=== PATIENT | female | born 1945 | race African-American/Black ===

== ENCOUNTER 2016-08-29 14:23 | Emergency (ER) | payer OTHER ==
[~2016-08-29] VITALS: Ht 162.6 cm; Wt 70.9 kg
[~2016-08-29 14:23] MED LIST: 8 HOUR PAIN RE650 M1 PO; ADULT LOW DOSE81 M1 PO; ADVAIR 100/501 DISK IH; ALBUTEROL SULF8.5 GM IH; ALPRAZOLAM0.25 MG PO; ANTI-DIARRHEA2 MG PO; ANUSOL1 SUPP PR; ASPIRIN E.C.81 M1 PO; Aspirin E.C. PO; BACTRIM,SEPT1 TABLET PO; BIOFREEZE TP; CEFTIN500 MG PO; CELEXA20 MG PO; CELEXA40 MG PO; CILOSTAZOL100 MG PO; CITALOPRAM HBR20 M1 PO; CLOPIDOGREL75 MG PO; COLACE100 MG PO; COMPAZINE5 MG PO; COUMADIN3 MG; COZAAR100 MG PO; COZAAR25 MG PO; COZAAR50 MG PO; CYMBALTA60 MG PO; Cozaar PO; DELTASONE10 MG PO; DEPAKOTE SPRIN125 MG; DEPAKOTE500 MG PO; DIVALPROEX SOD250 MG PO; DUONEB3 ML IH; DURAGESIC12 MCG TD; DURAGESIC25 MCG TD; DURAGESIC50 MCG TD; Duragesic TD; ENDOCET 5-3251 EACH PO; Ecotrin PO; FENTANYL1 EAC4 TD; GABAPENTIN600 MG PO; GEODON20 MG PO; GEODON40 MG PO; GLUCOPHAGE500 MG PO; GUIATUSS DM SY240 ML PO; Geodon PO; HUMALOG100 UNIT/1 SC; HYDROCODON-ACE1 EAC7 PO; HYDROXYZINE HCL25 M1; Habitrol,Nicoderm CQ TD; IMODIUM A-D2 M1 PO; K-DUR10 ME2 PO; K-Dur PO; KEFLEX500 MG PO; Klor-Con M20 PO; LANTUS 10100 UNITS/ SC; LANTUS 3 M100 UNITS/ SC; LANTUS 3 M100 UNITS1 SC; LASIX20 MG PO; LASIX40 MG PO; LEVEMIR FL100 UNITS/ SC; LEVEMIR100 UNIT/2 SC; LEVOTHROID75 MCG PO; LEVOTHYROXINE50 MCG PO; LIDOCAINE700 MG TD; LIDODERM 5% P1 PATCH PO; LIDODERM 5% P1 PATCH TD; LIPITOR20 MG PO; LISINOPRIL2.5 MG PO; LOPRESSOR25 MG PO; LOPRESSOR50 MG PO; LOSARTAN POTASS50 MG PO; Levaquin PO; Levothroid,Synthroid PO; Lopressor PO; METADATE CD50 MG; METFORMIN HCL500 M1 PO; MIRALAX17 GM PO; MIRTAZAPINE15 MG PO; MOBIC7.5 MG PO; MUCINEX DM ER1 EAC1 PO; Miralax, Glycolax PO; NEURONTIN100 MG PO; NEURONTIN300 MG PO; NEURONTIN400 MG PO; NEURONTIN600 MG PO; NICODERM CQ1 EAC2 TD; NITROSTAT0.4 MG SL; NORVASC5 MG PO; NOVOLOG 10100 UNITS/ SC; NOVOLOG PE100 UNITS/ SC; Neurontin PO; Norvasc PO; OXYCODONE HCL5 MG PO; PERCOCET 5/31 TABLET PO; PHILLIPS'400 MG/5 M PO; PLAVIX75 MG PO; PLETAL100 MG PO; PRAVASTATIN SOD80 MG PO; PRILOSEC20 MG PO; PRINIVIL10 MG PO; PROAIR HFA8.5 GM IH; PROCTOSOL-HC28.35 GM RC; PROMETHAZINE HC25 M1 PO; PROTONIX40 MG PO; Pravachol PO; Proventil,Ventolin H IH; RISPERDAL2 MG PO; RISPERIDONE0.5 MG PO; ROBITUSSIN DM118 ML PO; ROXICODONE5 MG PO; RYBIX ODT50 MG PO; SENNA8.6 MG PO; SENOKOT S,PE1 TABLET PO; SENOKOT,SENN1 TABLET PO; SPIRIVA1 INHALATI IH; STOOL SOFTENER100 MG PO; SYNTHROID50 MCG PO; TOPROL XL100 MG PO; TOPROL XL50 MG PO; TOPROL XL6.25 MG PO; TRADJENTA5 MG PO; TRAMADOL HCL50 MG PO; TYLENOL EXTRA500 MG PO; TYLENOL REGULA325 MG PO; Toprol XL PO; Tylenol Regular Stre PO; ULTRAM50 MG PO; Xanax PO; ZESTRIL,PRINIVI20 MG PO; ZESTRIL2.5 MG PO; ZOCOR20 MG PO; ZOCOR40 MG PO; Zocor PO; Zofran PO; celeXA PO
[2016-08-29 15:53] LABS: HEMATOCRIT 37.2 % (36.0-46.0); MCH 33.5 PG (29.0-34.0); MCHC 36.3 G/DL (30.0-36.0); MCV 92.3 FL (83-99); MEAN PLAT.VOLUME 9.2 uM^3 (9.5-12.4); PLATELET COUNT 214 K/uL (156-360); RBC DIS.WIDTH-CV 11.4 % (11.8-14.6); RBC DIS.WIDTH-SD 37.9 % (39-53); RED BLOOD COUNT 4.03 M/uL (3.80-5.20); WHITE BLOOD COUNT 6.2 K/uL (4.1-10.2)
[2016-08-29 16:20] LABS: ANION GAP 10 MEQ/L (2-14); CHLORIDE 103 MEQ/L (99-109); POTASSIUM 3.4 MEQ/L (3.7-5.4); SAMPLE HEMOLYSIS CHECK 0; SAMPLE ICTERIC CHECK 0; SAMPLE LIPEMIA CHECK 0; SODIUM 137 MEQ/L (136-147)
[2016-08-29 16:26] LABS: GFR ESTIMATE (CALCULATED) > 59 mL/min/; GLUCOSE 139 mg/dL (70-99); UREA NITROGEN (BUN) 5 mg/dL (9-23)
[2016-08-29 16:28] LABS: TROP-I INTERPRETATION NEGATIVE; TROPONIN-I < 0.01 ng/mL (0.0-0.30)
[2016-08-29 16:34] LABS: ADD MIUA? YES; BILIRUBIN NEGATIVE; BLOOD NEGATIVE; COLOR DK YELLOW ((YELLOW)); GLUCOSE (STRIP) NEGATIVE; KETONES NEGATIVE; LEUKOCYTES NEGATIVE; NITRITE NEGATIVE; PROTEIN (STRIP) 30; SPECIFIC GRAVITY 1.017 (1.000-1.030)
[2016-08-29 17:03] LABS: BACTERIA 2+; CASTS NONE SEEN /LPF; CRYSTALS NONE SEEN; EPITHELIAL CELLS RARE; MUCUS NONE SEEN; RED BLOOD CELLS 0-5 /HPF (0-5); UCUL ADDED? NO; WHITE BLOOD CELLS 0-5 /HPF (0-5)
[2016-08-29] MEDS ORDERED: ACETAMINOPHEN500 MG PO (18:41)
[2016-08-29] MEDS ORDERED: PROTONIX40 MG PO (18:42)
[2016-08-29] MEDS ORDERED: MAALOX ADVANCE1 EACH PO (18:42)
[2016-08-29 18:48] VITALS: BP 127/80
== END 2016-08-29 18:47 ==
LOC: EME 14:23
PROVIDERS: Emergency Medicine
DX: R06.00 Dyspnea, unspecified (principal); F20.9 Schizophrenia, unspecified; E11.9 Type 2 diabetes mellitus without complications; J43.9 Emphysema, unspecified; J44.9 Chronic obstructive pulmonary disease, unspecified; I10 Essential (primary) hypertension; E03.9 Hypothyroidism, unspecified; Z79.4 Long term (current) use of insulin; Z87.891 Personal history of nicotine dependence; Z88.6 Allergy status to analgesic agent
CPT/HCPCS: 71020; 80048; 81003; 84484; 85027; 90839; 93005; 99281; 99284

== ENCOUNTER 2016-12-02 11:28 | Emergency (ER) | payer OTHER ==
[~2016-12-02] VITALS: Ht 170.2 cm; Wt 73.8 kg
[~2016-12-02 11:28] MED LIST changes: +ACETAMINOPHEN500 MG PO; +MAALOX ADVANCE1 EACH PO
[2016-12-02 13:11] VITALS: BP 131/108
== END 2016-12-02 13:11 | disposition left against medical advice (07) ==
LOC: EME 11:28
DX: R07.89 Other chest pain (principal); F03.90 Unspecified dementia, unspecified severity, without behavioral disturbance, psychotic disturbance, mood disturbance, and anxiety; R45.1 Restlessness and agitation; F39 Unspecified mood [affective] disorder; E11.9 Type 2 diabetes mellitus without complications; I11.0 Hypertensive heart disease with heart failure; I50.9 Heart failure, unspecified; E78.5 Hyperlipidemia, unspecified; I25.2 Old myocardial infarction; K21.9 Gastro-esophageal reflux disease without esophagitis; Z86.73 Personal history of transient ischemic attack (TIA), and cerebral infarction without residual deficits; Z87.891 Personal history of nicotine dependence; Z95.5 Presence of coronary angioplasty implant and graft
CPT/HCPCS: 80048; 84484; 85025; 85610; 85730; 93005; 99281; 99284

== ENCOUNTER 2017-07-19 17:54 | Inpatient (IN) | payer OTHER ==
[~2017-07-19] VITALS: Ht 167.6 cm; Wt 67.2 kg
[2017-07-19 19:56] LABS: PLATELET COUNT 85 K/uL (156-360)
[2017-07-19 19:57] LABS: APPEARANCE CLEAR ((CLEAR)); BILIRUBIN NEGATIVE; BLOOD NEGATIVE; COLOR YELLOW ((YELLOW)); GLUCOSE (STRIP) >=500; KETONES NEGATIVE; LEUKOCYTES NEGATIVE; NITRITE NEGATIVE; PROTEIN (STRIP) NEGATIVE; SPECIFIC GRAVITY 1.015 (1.000-1.030); UCUL ADDED? NO
[2017-07-19 20:06] LABS: AMPHETAMINE NEGATIVE (500 ng/mL); BARBITURATES NEGATIVE (200 ng/mL); BENZODIAZEPINES NEGATIVE (150 ng/mL); BUPRENORPHINE NEGATIVE (10 ng/mL); COCAINE NEGATIVE (150 ng/mL); METHADONE NEGATIVE (200 ng/mL); METHAMPHETAMINE NEGATIVE (500 ng/mL); OPIATES (MORPHINE) NEGATIVE (100 ng/mL); OXYCODONE NEGATIVE (100 ng/mL); PHENCYCLIDINE NEGATIVE (25 ng/mL); PROPOXYPHENE NEGATIVE (300 ng/mL); THC CANNABINOIDS NEGATIVE (50 ng/mL); TRICYCLIC ANTIDEPRESSANTS PRESUMPTIVE POSITIVE (300 ng/mL)
[2017-07-19 20:27] LABS: CARBON DIOXIDE (BICARBONATE) 35.3 MEQ/L (20-31)
[2017-07-19 20:30] LABS: CHLORIDE 92 mEq/L (99-109); POTASSIUM 3.6 mEq/L (3.7-5.4); SODIUM 133 mEq/L (136-147)
[2017-07-19 20:34] LABS: TOTAL BILIRUBIN 1.8 mg/dL (0.0-1.0)
[2017-07-19 20:35] LABS: ALKALINE PHOSPHATASE 130 IU/L (3-129)
[2017-07-19 20:36] LABS: CREATININE 1.1 mg/dL (0.6-1.3); GFR ESTIMATE (CALCULATED) > 59 mL/min/
[2017-07-19 20:37] LABS: AST (GOT) 40 IU/L (2-34); UREA NITROGEN (BUN) 14 mg/dL (9-23)
[2017-07-19 20:39] LABS: ALT (GPT) 35 IU/L (3-49)
[2017-07-19 20:47] LABS: GLUCOSE 605 mg/dL (70-99)
[2017-07-19 20:54] LABS: HEMATOCRIT 36.6 % (36.0-46.0); HEMOGLOBIN 14.2 G/DL (11.9-15.5); MCH 34.6 PG (29.0-34.0); MCHC 38.8 G/DL (30.0-36.0); MCV 89.3 FL (83-99); RBC DIS.WIDTH-CV 10.7 % (11.8-14.6); RBC DIS.WIDTH-SD 34.7 % (39-53); WHITE BLOOD COUNT 5.5 K/uL (4.1-10.2)
[2017-07-20 00:47] VITALS: BP 123/61
[2017-07-20 06:02] LABS: HEMATOCRIT 34.1 % (36.0-46.0); HEMOGLOBIN 12.7 G/DL (11.9-15.5); MCH 33.8 PG (29.0-34.0); MCHC 37.2 G/DL (30.0-36.0); MCV 90.7 FL (83-99); PLATELET COUNT 89 K/uL (156-360); RBC DIS.WIDTH-CV 10.7 % (11.8-14.6); RBC DIS.WIDTH-SD 35.4 % (39-53); RED BLOOD COUNT 3.76 M/uL (3.80-5.20)
[2017-07-20 06:26] LABS: ALBUMIN 3.3 G/DL (3.2-4.8); ALKALINE PHOSPHATASE 105 IU/L (3-129); ALT (GPT) 33 IU/L (3-49); AST (GOT) 44 IU/L (2-34); CHLORIDE 102 MEQ/L (99-109); CREATININE 0.7 MG/DL (0.6-1.3); GFR ESTIMATE (CALCULATED) > 59 mL/min/; GLUCOSE 316 mg/dL (70-99); POTASSIUM 2.9 MEQ/L (3.7-5.4); SODIUM 135 MEQ/L (136-147); UREA NITROGEN (BUN) 10 mg/dL (9-23)
[2017-07-20 08:18] VITALS: BP 168/97
[2017-07-20 09:36] LABS: THYROTROPIN (TSH) 5.6 MIU/L (0.4-5.5)
[2017-07-20 10:21] LABS: FOLIC ACID (FOLATE) 12.1 NG/ML (5.0-22.0)
[2017-07-20 15:23] VITALS: BP 183/83
[2017-07-20 16:30] LABS: POTASSIUM 4.2 MEQ/L (3.7-5.4)
[2017-07-20 20:23] LABS: GLUCOSE 505 mg/dL (70-99)
[2017-07-20 23:13] VITALS: BP 148/77
[2017-07-21 07:05] VITALS: BP 122/78
[2017-07-21 09:06] LABS: HEMATOCRIT 34.9 % (36.0-46.0); HEMOGLOBIN 12.8 G/DL (11.9-15.5); MCH 33.2 PG (29.0-34.0); MCHC 36.7 G/DL (30.0-36.0); MCV 90.6 FL (83-99); PLATELET COUNT 101 K/uL (156-360); RBC DIS.WIDTH-SD 36.5 % (39-53); RED BLOOD COUNT 3.85 M/uL (3.80-5.20); WHITE BLOOD COUNT 5.8 K/uL (4.1-10.2)
[2017-07-21 09:35] LABS: CHLORIDE 106 MEQ/L (99-109); CREATININE 0.8 MG/DL (0.6-1.3); GFR ESTIMATE (CALCULATED) > 59 mL/min/; GLUCOSE 142 mg/dL (70-99); POTASSIUM 2.6 MEQ/L (3.7-5.4); SODIUM 143 MEQ/L (136-147); UREA NITROGEN (BUN) 8 mg/dL (9-23)
[2017-07-21 10:47] LABS: HEPATITIS B SURFACE ANTIGEN Nonreactive
[2017-07-21 10:48] LABS: ANTI-HEPATITIS A VIRUS (IGM) Nonreactive
[2017-07-21 10:49] LABS: ANTI-HEPATITIS B CORE (IGM) Nonreactive
[2017-07-21 10:55] LABS: TREPONEMA ANTIBODY NEGATIVE (NEGATIVE)
[2017-07-21 11:02] LABS: HEPATITIS C ANTIBODY REACTIVE
[2017-07-21 15:32] LABS: C DIFF TOXIN NEGATIVE (NEGATIVE)
[2017-07-21 15:54] VITALS: BP 124/71
[2017-07-21 23:34] LABS: APPEARANCE CLEAR ((CLEAR)); BILIRUBIN NEGATIVE; BLOOD SMALL; COLOR YELLOW ((YELLOW)); GLUCOSE (STRIP) >=500; KETONES NEGATIVE; LEUKOCYTES NEGATIVE; NITRITE NEGATIVE; PROTEIN (STRIP) NEGATIVE; SPECIFIC GRAVITY 1.012 (1.000-1.030)
[2017-07-22 00:14] VITALS: BP 134/80
[2017-07-22 00:33] LABS: BACTERIA 3+ /HPF; EPITHELIAL CELLS NONE SEEN /HPF; MUCUS NONE SEEN /LPF
[2017-07-22 07:30] VITALS: BP 134/78
[2017-07-22 11:09] LABS: HEMATOCRIT 35.9 % (36.0-46.0); HEMOGLOBIN 13.2 G/DL (11.9-15.5); MCH 34.3 PG (29.0-34.0); MCHC 36.8 G/DL (30.0-36.0); MCV 93.2 FL (83-99); PLATELET COUNT 86 K/uL (156-360); RBC DIS.WIDTH-SD 37.6 % (39-53); RED BLOOD COUNT 3.85 M/uL (3.80-5.20); WHITE BLOOD COUNT 4.8 K/uL (4.1-10.2)
[2017-07-22 11:36] LABS: ALBUMIN 3.1 G/DL (3.2-4.8); ALKALINE PHOSPHATASE 80 IU/L (3-129); ALT (GPT) 37 IU/L (3-49); AST (GOT) 54 IU/L (2-34); CHLORIDE 103 MEQ/L (99-109); CREATININE 0.8 MG/DL (0.6-1.3); GFR ESTIMATE (CALCULATED) > 59 mL/min/; SODIUM 136 MEQ/L (136-147); TOTAL BILIRUBIN 1.8 MG/DL (0.0-1.0); TOTAL PROTEIN 6.8 G/DL (6.4-8.3); UREA NITROGEN (BUN) 10 mg/dL (9-23)
[2017-07-22 11:37] LABS: GLUCOSE 353 mg/dL (70-99)
[2017-07-22 15:39] VITALS: BP 134/79
[2017-07-23 07:00] VITALS: BP 158/76
[2017-07-23 11:09] LABS: HEMATOCRIT 35.9 % (36.0-46.0); HEMOGLOBIN 13.4 G/DL (11.9-15.5); MCH 34.6 PG (29.0-34.0); MCHC 37.3 G/DL (30.0-36.0); MCV 92.8 FL (83-99); PLATELET COUNT 91 K/uL (156-360); RBC DIS.WIDTH-SD 37.4 % (39-53); RED BLOOD COUNT 3.87 M/uL (3.80-5.20); WHITE BLOOD COUNT 5.8 K/uL (4.1-10.2)
[2017-07-23 12:09] LABS: ALBUMIN 3.1 G/DL (3.2-4.8); CHLORIDE 112 MEQ/L (99-109); CREATININE 0.8 MG/DL (0.6-1.3); GFR ESTIMATE (CALCULATED) > 59 mL/min/; GLUCOSE 177 mg/dL (70-99); PHOSPHORUS 3.6 mg/dL (2.5-4.9); POTASSIUM 3.8 MEQ/L (3.7-5.4); SODIUM 143 MEQ/L (136-147); UREA NITROGEN (BUN) 9 mg/dL (9-23)
[2017-07-23] MEDS ORDERED: TRADJENTA5 MG PO (12:51)
[2017-07-23] MEDS ORDERED: TRAMADOL HCL50 MG PO (12:52)
[2017-07-23] MEDS ORDERED: RISPERIDONE0.5 MG PO (12:52)
[2017-07-23] MEDS ORDERED: PLAVIX75 MG PO (12:53)
[2017-07-23] MEDS ORDERED: GABAPENTIN100 MG PO (12:53)
[2017-07-23] MEDS ORDERED: METFORMIN HCL500 MG PO (12:53)
[2017-07-23] MEDS ORDERED: CYMBALTA60 MG PO (12:54)
[2017-07-23] MEDS ORDERED: LOPRESSOR25 MG PO (12:54)
[2017-07-23] MEDS ORDERED: LISINOPRIL2.5 MG PO (12:54)
[2017-07-23] MEDS ORDERED: ROBITUSSIN100 MG/5 M PO (12:55)
[2017-07-23] MEDS ORDERED: VICKS NYQUIL C236 ML PO (12:55)
[2017-07-23 22:34] VITALS: BP 119/60
[2017-07-24 07:23] VITALS: BP 140/85
[2017-07-24 09:47] LABS: BASOPHIL (%) 0.8 % (0-1); BASOPHIL COUNT 0.1 K/uL (0-0.1); EOSINOPHIL (%) 3.6 % (0-5); EOSINOPHIL COUNT 0.2 K/uL (0-0.3); HEMOGLOBIN 13.8 G/DL (11.9-15.5); IMMATURE GRANULOCYTE (%) 0.3 % (0.0-0.7); LYMPHOCYTE (%) 37.3 % (15-42); LYMPHOCYTE COUNT 2.4 K/uL (1.0-2.8); MCH 34.1 PG (29.0-34.0); MCHC 36.3 G/DL (30.0-36.0); MCV 93.8 FL (83-99); MONOCYTE (%) 8.7 % (3-12); MONOCYTE COUNT 0.6 K/uL (0-0.8); NEUTROPHIL (%) 49.3 % (45-76); NEUTROPHIL COUNT 3.1 K/uL (1.8-6.4); PLATELET COUNT 99 K/uL (156-360); RBC DIS.WIDTH-SD 37.4 % (39-53); RED BLOOD COUNT 4.05 M/uL (3.80-5.20); WHITE BLOOD COUNT 6.3 K/uL (4.1-10.2)
[2017-07-24 10:12] LABS: ALBUMIN 3.2 G/DL (3.2-4.8); CHLORIDE 111 MEQ/L (99-109); GFR ESTIMATE (CALCULATED) > 59 mL/min/; GLUCOSE 178 mg/dL (70-99); PHOSPHORUS 4.2 mg/dL (2.5-4.9); POTASSIUM 4.5 MEQ/L (3.7-5.4); SODIUM 141 MEQ/L (136-147); UREA NITROGEN (BUN) 14 mg/dL (9-23)
[2017-07-24 16:33] VITALS: BP 148/76
[2017-07-24 22:54] VITALS: BP 132/72
[2017-07-25 06:55] VITALS: BP 137/81
[2017-07-25 15:10] VITALS: BP 135/77
[2017-07-26 00:01] VITALS: BP 114/77
[2017-07-26 08:55] VITALS: BP 110/62
[2017-07-26 15:00] VITALS: BP 111/82
[2017-07-27 01:09] VITALS: BP 136/84
[2017-07-27 07:11] VITALS: BP 99/53
[2017-07-27 15:59] VITALS: BP 136/91
[2017-07-27 21:26] VITALS: BP 97/55
[2017-07-27 23:59] VITALS: BP 105/68
[2017-07-28] MEDS ORDERED: NOVOLOG PE100 UNITS/ SC (08:03)
[2017-07-28] MEDS ORDERED: LEVEMIR100 UNIT/2 SC (08:03)
[2017-07-28 11:07] LABS: HEMATOCRIT 40.2 % (36.0-46.0); HEMOGLOBIN 13.8 G/DL (11.9-15.5); MCH 33.3 PG (29.0-34.0); MCHC 34.3 G/DL (30.0-36.0); MCV 97.1 FL (83-99); RBC DIS.WIDTH-CV 11.1 % (11.8-14.6); RBC DIS.WIDTH-SD 39.4 % (39-53); RED BLOOD COUNT 4.14 M/uL (3.80-5.20); WHITE BLOOD COUNT 6.7 K/uL (4.1-10.2)
[2017-07-28 11:17] LABS: PLATELET COUNT 138 K/uL (156-360)
[2017-07-28 11:35] LABS: TROP-I INTERPRETATION NEGATIVE; TROPONIN-I < 0.01 ng/mL (0.0-0.30)
[2017-07-28 13:42] LABS: ALBUMIN 3.8 G/DL (3.2-4.8); ALT (GPT) 42 IU/L (3-49); AST (GOT) 44 IU/L (2-34); CHLORIDE 105 MEQ/L (99-109); TOTAL BILIRUBIN 1.5 MG/DL (0.0-1.0)
[2017-07-28 13:46] LABS: CREATININE 1.5 MG/DL (0.6-1.3); GLUCOSE 444 mg/dL (70-99); UREA NITROGEN (BUN) 24 mg/dL (9-23)
[2017-07-28 13:47] LABS: ALKALINE PHOSPHATASE 110 IU/L (3-129); GFR ESTIMATE (CALCULATED) 44 mL/min/; POTASSIUM 7.2 MEQ/L (3.7-5.4); SODIUM 128 MEQ/L (136-147); TOTAL PROTEIN 8.2 G/DL (6.4-8.3)
[2017-07-28 18:51] LABS: CHLORIDE 103 MEQ/L (99-109); CREATININE 1.5 MG/DL (0.6-1.3); GFR ESTIMATE (CALCULATED) 44 mL/min/; SODIUM 131 MEQ/L (136-147); UREA NITROGEN (BUN) 22 mg/dL (9-23)
[2017-07-28 18:53] LABS: GLUCOSE 403 mg/dL (70-99); POTASSIUM 7.3 MEQ/L (3.7-5.4)
[2017-07-28 19:20] LABS: CREATINE KINASE 109 IU/L (1-294)
[2017-07-28 20:45] VITALS: BP 89/69
[2017-07-28 21:15] VITALS: BP 89/69; BP 96/68
[2017-07-28 21:30] VITALS: BP 112/100
[2017-07-28 22:00] VITALS: BP 95/78
[2017-07-28 22:30] VITALS: BP 130/109
[2017-07-28 23:00] VITALS: BP 87/65
[2017-07-29] VITALS (18 sets, daily range): BP systolic 89–141; BP diastolic 59–104
[2017-07-29 01:03] LABS: CHLORIDE 112 mEq/L (99-109)
[2017-07-29 01:05] LABS: GLUCOSE 110 mg/dL (70-99)
[2017-07-29 01:06] LABS: POTASSIUM 4.1 mEq/L (3.7-5.4); SODIUM 139 mEq/L (136-147)
[2017-07-29 01:08] LABS: CREATININE 1.5 mg/dL (0.6-1.3); GFR ESTIMATE (CALCULATED) 44 mL/min/
[2017-07-29 01:09] LABS: UREA NITROGEN (BUN) 20 mg/dL (9-23)
[2017-07-29 06:36] LABS: CHLORIDE 110 MEQ/L (99-109); CREATININE 1.2 MG/DL (0.6-1.3); GFR ESTIMATE (CALCULATED) 57 mL/min/; POTASSIUM 4.6 MEQ/L (3.7-5.4); SODIUM 137 MEQ/L (136-147); UREA NITROGEN (BUN) 16 mg/dL (9-23)
[2017-07-29 06:38] LABS: GLUCOSE 220 mg/dL (70-99)
[2017-07-29 10:26] LABS: BASOPHIL (%) 0.8 % (0-1); BASOPHIL COUNT 0.1 K/uL (0-0.1); EOSINOPHIL (%) 3.3 % (0-5); EOSINOPHIL COUNT 0.2 K/uL (0-0.3); HEMATOCRIT 33.9 % (36.0-46.0); HEMOGLOBIN 12.4 G/DL (11.9-15.5); IMMATURE GRANULOCYTE (%) 0.3 % (0.0-0.7); LYMPHOCYTE (%) 39.3 % (15-42); LYMPHOCYTE COUNT 2.5 K/uL (1.0-2.8); MCH 34.9 PG (29.0-34.0); MCHC 36.6 G/DL (30.0-36.0); MCV 95.5 FL (83-99); MONOCYTE (%) 10.8 % (3-12); MONOCYTE COUNT 0.7 K/uL (0-0.8); NEUTROPHIL (%) 45.5 % (45-76); NEUTROPHIL COUNT 2.9 K/uL (1.8-6.4); PLATELET COUNT 111 K/uL (156-360); RBC DIS.WIDTH-CV 11.3 % (11.8-14.6); RBC DIS.WIDTH-SD 39.2 % (39-53); RED BLOOD COUNT 3.55 M/uL (3.80-5.20); WHITE BLOOD COUNT 6.5 K/uL (4.1-10.2)
[2017-07-29 17:18] LABS: ALBUMIN 3.1 G/DL (3.2-4.8); ALT (GPT) 38 IU/L (3-49); AST (GOT) 44 IU/L (2-34); CHLORIDE 112 MEQ/L (99-109); CREATININE 0.9 MG/DL (0.6-1.3); GFR ESTIMATE (CALCULATED) > 59 mL/min/; POTASSIUM 3.8 MEQ/L (3.7-5.4); SODIUM 139 MEQ/L (136-147); TOTAL BILIRUBIN 1.3 MG/DL (0.0-1.0); UREA NITROGEN (BUN) 14 mg/dL (9-23)
[2017-07-29 17:25] LABS: ALKALINE PHOSPHATASE 65 IU/L (3-129); GLUCOSE 113 mg/dL (70-99)
[2017-07-30 08:03] VITALS: BP 118/84
[2017-07-30 11:28] VITALS: BP 141/81
[2017-07-30 13:29] LABS: BASOPHIL (%) 0.8 % (0-1); EOSINOPHIL (%) 2.4 % (0-5); EOSINOPHIL COUNT 0.1 K/uL (0-0.3); HEMATOCRIT 36.4 % (36.0-46.0); HEMOGLOBIN 12.9 G/DL (11.9-15.5); IMMATURE GRANULOCYTE (%) 0.2 % (0.0-0.7); LYMPHOCYTE (%) 43.9 % (15-42); LYMPHOCYTE COUNT 2.2 K/uL (1.0-2.8); MCH 33.9 PG (29.0-34.0); MCHC 35.4 G/DL (30.0-36.0); MCV 95.5 FL (83-99); MONOCYTE (%) 8.9 % (3-12); MONOCYTE COUNT 0.5 K/uL (0-0.8); NEUTROPHIL (%) 43.8 % (45-76); NEUTROPHIL COUNT 2.2 K/uL (1.8-6.4); PLATELET COUNT 108 K/uL (156-360); RBC DIS.WIDTH-CV 11.3 % (11.8-14.6); RBC DIS.WIDTH-SD 39.1 % (39-53); RED BLOOD COUNT 3.81 M/uL (3.80-5.20)
[2017-07-30 13:40] LABS: ALBUMIN 3.1 g/dL (3.2-4.8); CHLORIDE 114 mEq/L (99-109); POTASSIUM 3.6 mEq/L (3.7-5.4); SODIUM 138 mEq/L (136-147)
[2017-07-30 13:41] LABS: MAGNESIUM 1.6 mg/dL (1.3-2.7)
[2017-07-30 13:43] LABS: GLUCOSE 157 mg/dL (70-99); TOTAL PROTEIN 7.3 g/dL (6.4-8.3)
[2017-07-30 13:45] LABS: TOTAL BILIRUBIN 1.2 mg/dL (0.0-1.0)
[2017-07-30 13:46] LABS: ALKALINE PHOSPHATASE 68 IU/L (3-129); PHOSPHORUS 3.3 mg/dL (2.5-4.9)
[2017-07-30 13:47] LABS: CREATININE 0.9 mg/dL (0.6-1.3); GFR ESTIMATE (CALCULATED) > 59 mL/min/
[2017-07-30 13:48] LABS: AST (GOT) 57 IU/L (2-34); UREA NITROGEN (BUN) 12 mg/dL (9-23)
[2017-07-30 13:49] LABS: ALT (GPT) 45 IU/L (3-49)
[2017-07-30 19:45] VITALS: BP 114/64
[2017-07-31 00:01] VITALS: BP 124/82
[2017-07-31 03:30] VITALS: BP 116/72
[2017-07-31 10:31] VITALS: BP 128/98
[2017-07-31 11:29] LABS: ALBUMIN 3.4 G/DL (3.2-4.8); ALKALINE PHOSPHATASE 65 IU/L (3-129); ALT (GPT) 39 IU/L (3-49); AST (GOT) 53 IU/L (2-34); CHLORIDE 113 MEQ/L (99-109); CREATININE 0.8 MG/DL (0.6-1.3); GFR ESTIMATE (CALCULATED) > 59 mL/min/; GLUCOSE 103 mg/dL (70-99); POTASSIUM 3.5 MEQ/L (3.7-5.4); SODIUM 141 MEQ/L (136-147); TOTAL BILIRUBIN 1.5 MG/DL (0.0-1.0); TOTAL PROTEIN 7.7 G/DL (6.4-8.3); UREA NITROGEN (BUN) 9 mg/dL (9-23)
[2017-07-31 16:32] VITALS: BP 141/83
[2017-07-31 16:51] LABS: BASOPHIL (%) 0.7 % (0-1); EOSINOPHIL (%) 2.5 % (0-5); EOSINOPHIL COUNT 0.1 K/uL (0-0.3); HEMATOCRIT 33.4 % (36.0-46.0); HEMOGLOBIN 11.9 G/DL (11.9-15.5); IMMATURE GRANULOCYTE (%) 0.2 % (0.0-0.7); LYMPHOCYTE (%) 32.3 % (15-42); LYMPHOCYTE COUNT 1.3 K/uL (1.0-2.8); MCH 33.6 PG (29.0-34.0); MCHC 35.6 G/DL (30.0-36.0); MCV 94.4 FL (83-99); MONOCYTE (%) 8.2 % (3-12); MONOCYTE COUNT 0.3 K/uL (0-0.8); NEUTROPHIL (%) 56.1 % (45-76); NEUTROPHIL COUNT 2.3 K/uL (1.8-6.4); PLATELET COUNT 108 K/uL (156-360); RBC DIS.WIDTH-CV 11.1 % (11.8-14.6); RBC DIS.WIDTH-SD 38.4 % (39-53); RED BLOOD COUNT 3.54 M/uL (3.80-5.20)
[2017-07-31 19:31] VITALS: BP 127/81
[2017-08-01 00:08] VITALS: BP 103/68
[2017-08-01 05:49] LABS: BASOPHIL (%) 0.5 % (0-1); EOSINOPHIL (%) 3.2 % (0-5); EOSINOPHIL COUNT 0.1 K/uL (0-0.3); HEMATOCRIT 27.6 % (36.0-46.0); HEMOGLOBIN 10.1 G/DL (11.9-15.5); IMMATURE GRANULOCYTE (%) 0.5 % (0.0-0.7); LYMPHOCYTE (%) 46.6 % (15-42); LYMPHOCYTE COUNT 1.8 K/uL (1.0-2.8); MCH 33.9 PG (29.0-34.0); MCHC 36.6 G/DL (30.0-36.0); MCV 92.6 FL (83-99); MONOCYTE (%) 8.7 % (3-12); MONOCYTE COUNT 0.3 K/uL (0-0.8); NEUTROPHIL (%) 40.5 % (45-76); NEUTROPHIL COUNT 1.5 K/uL (1.8-6.4); PLATELET COUNT 93 K/uL (156-360); RBC DIS.WIDTH-CV 11.1 % (11.8-14.6); RBC DIS.WIDTH-SD 37.9 % (39-53); RED BLOOD COUNT 2.98 M/uL (3.80-5.20); WHITE BLOOD COUNT 3.8 K/uL (4.1-10.2)
[2017-08-01 07:04] LABS: ALBUMIN 2.7 G/DL (3.2-4.8); ALT (GPT) 34 IU/L (3-49); AST (GOT) 43 IU/L (2-34); CHLORIDE 111 MEQ/L (99-109); CREATININE 0.8 MG/DL (0.6-1.3); GFR ESTIMATE (CALCULATED) > 59 mL/min/; POTASSIUM 3.5 MEQ/L (3.7-5.4); SODIUM 139 MEQ/L (136-147); UREA NITROGEN (BUN) 12 mg/dL (9-23)
[2017-08-01 07:06] LABS: ALKALINE PHOSPHATASE 113 IU/L (3-129); GLUCOSE 252 mg/dL (70-99); TOTAL BILIRUBIN 0.9 MG/DL (0.0-1.0); TOTAL PROTEIN 5.9 G/DL (6.4-8.3)
[2017-08-01 16:37] VITALS: BP 141/87
[2017-08-01 20:00] VITALS: BP 160/89
[2017-08-02 03:24] VITALS: BP 142/88
[2017-08-02 07:00] VITALS: BP 135/74
[2017-08-02 09:14] LABS: HEMATOCRIT 30.3 % (36.0-46.0); HEMOGLOBIN 10.8 G/DL (11.9-15.5); MCH 33.8 PG (29.0-34.0); MCHC 35.6 G/DL (30.0-36.0); MCV 94.7 FL (83-99); PLATELET COUNT 103 K/uL (156-360); RBC DIS.WIDTH-CV 11.3 % (11.8-14.6); RBC DIS.WIDTH-SD 38.7 % (39-53); WHITE BLOOD COUNT 3.6 K/uL (4.1-10.2)
[2017-08-02 10:01] LABS: ALBUMIN 2.8 G/DL (3.2-4.8); ALKALINE PHOSPHATASE 90 IU/L (3-129); ALT (GPT) 31 IU/L (3-49); AST (GOT) 33 IU/L (2-34); CHLORIDE 113 MEQ/L (99-109); CREATININE 0.8 MG/DL (0.6-1.3); GFR ESTIMATE (CALCULATED) > 59 mL/min/; POTASSIUM 3.6 MEQ/L (3.7-5.4); SODIUM 143 MEQ/L (136-147); TOTAL PROTEIN 6.4 G/DL (6.4-8.3); UREA NITROGEN (BUN) 12 mg/dL (9-23)
[2017-08-02 10:04] LABS: GLUCOSE 124 mg/dL (70-99)
[2017-08-02 11:05] VITALS: BP 146/79
[2017-08-02 15:00] VITALS: BP 121/93
[2017-08-02 23:50] VITALS: BP 169/72
[2017-08-03 05:23] VITALS: BP 120/70
[2017-08-03 05:39] LABS: BASOPHIL (%) 0.6 % (0-1); EOSINOPHIL COUNT 0.2 K/uL (0-0.3); HEMATOCRIT 32.3 % (36.0-46.0); HEMOGLOBIN 11.8 G/DL (11.9-15.5); IMMATURE GRANULOCYTE (%) 0.2 % (0.0-0.7); LYMPHOCYTE (%) 53.4 % (15-42); LYMPHOCYTE COUNT 2.5 K/uL (1.0-2.8); MCH 34.7 PG (29.0-34.0); MCHC 36.5 G/DL (30.0-36.0); MONOCYTE (%) 9.1 % (3-12); MONOCYTE COUNT 0.4 K/uL (0-0.8); NEUTROPHIL (%) 32.7 % (45-76); NEUTROPHIL COUNT 1.5 K/uL (1.8-6.4); PLATELET COUNT 100 K/uL (156-360); RBC DIS.WIDTH-CV 11.3 % (11.8-14.6); RBC DIS.WIDTH-SD 38.5 % (39-53); WHITE BLOOD COUNT 4.7 K/uL (4.1-10.2)
[2017-08-03 06:21] LABS: ALBUMIN 2.8 G/DL (3.2-4.8); ALKALINE PHOSPHATASE 110 IU/L (3-129); ALT (GPT) 30 IU/L (3-49); AST (GOT) 32 IU/L (2-34); CHLORIDE 113 MEQ/L (99-109); CREATININE 0.8 MG/DL (0.6-1.3); GFR ESTIMATE (CALCULATED) > 59 mL/min/; GLUCOSE 182 mg/dL (70-99); POTASSIUM 3.4 MEQ/L (3.7-5.4); SODIUM 143 MEQ/L (136-147); TOTAL BILIRUBIN 0.9 MG/DL (0.0-1.0); TOTAL PROTEIN 6.2 G/DL (6.4-8.3); UREA NITROGEN (BUN) 9 mg/dL (9-23)
[2017-08-03 06:45] VITALS: BP 129/69
[2017-08-04 00:46] VITALS: BP 142/89
[2017-08-04 07:27] VITALS: BP 105/61
[2017-08-04] MEDS ORDERED: COGENTIN0.5 MG PO (08:06)
[2017-08-04] MEDS ORDERED: MIRTAZAPINE15 MG PO (08:06)
[2017-08-04] MEDS ORDERED: RISPERDAL25 MG/2 ML IM (08:06)
[2017-08-04] MEDS ORDERED: DUONEB 2.5-0.5 M3 ML AEROSOL (08:06)
[2017-08-04] MEDS ORDERED: RISPERIDONE1 MG PO ×2 (08:06)
[2017-08-04] MEDS ORDERED: CLONAZEPAM0.5 MG PO ×2 (08:06→12:27)
[2017-08-04] MEDS ORDERED: NICOTINE PATCH1 EAC2 TD (08:06)
[2017-08-04] MEDS ORDERED: LEVEMIR100 UNIT/2 SC (08:06)
[2017-08-04 23:02] VITALS: BP 118/68
[2017-08-05 07:15] VITALS: BP 120/70
[2017-08-05 16:39] VITALS: BP 118/68
[2017-08-05 23:57] VITALS: BP 95/50
[2017-08-06 07:34] VITALS: BP 128/73
[2017-08-06 16:28] VITALS: BP 120/74
[2017-08-06 22:42] VITALS: BP 110/61
[2017-08-07 12:33] VITALS: BP 143/80
[2017-08-07 17:08] VITALS: BP 113/65
[2017-08-08 07:00] VITALS: BP 129/68
[2017-08-08 15:22] VITALS: BP 132/73
[2017-08-08 19:01] LABS: ALBUMIN 3.4 G/DL (3.2-4.8); ALT (GPT) 32 IU/L (3-49); AST (GOT) 34 IU/L (2-34); CREATININE 0.7 MG/DL (0.6-1.3); GFR ESTIMATE (CALCULATED) > 59 mL/min/; GLUCOSE 407 mg/dL (70-99); SODIUM 136 MEQ/L (136-147); UREA NITROGEN (BUN) 16 mg/dL (9-23)
[2017-08-08 19:02] LABS: ALKALINE PHOSPHATASE 192 IU/L (3-129); CHLORIDE 100 MEQ/L (99-109); POTASSIUM 5.1 MEQ/L (3.7-5.4)
[2017-08-08 22:00] VITALS: BP 105/61
[2017-08-09 06:06] LABS: HEMATOCRIT 33.5 % (36.0-46.0); HEMOGLOBIN 11.6 G/DL (11.9-15.5); MCH 33.2 PG (29.0-34.0); MCHC 34.6 G/DL (30.0-36.0); PLATELET COUNT 98 K/uL (156-360); RBC DIS.WIDTH-CV 12.2 % (11.8-14.6); RBC DIS.WIDTH-SD 41.2 % (39-53); RED BLOOD COUNT 3.49 M/uL (3.80-5.20); WHITE BLOOD COUNT 4.3 K/uL (4.1-10.2)
[2017-08-09 06:24] LABS: ALT (GPT) 28 IU/L (3-49); AST (GOT) 33 IU/L (2-34); CHLORIDE 106 MEQ/L (99-109); CREATININE 0.7 MG/DL (0.6-1.3); GFR ESTIMATE (CALCULATED) > 59 mL/min/; POTASSIUM 4.1 MEQ/L (3.7-5.4); SODIUM 140 MEQ/L (136-147); TOTAL BILIRUBIN 0.9 MG/DL (0.0-1.0); TOTAL PROTEIN 7.1 G/DL (6.4-8.3); UREA NITROGEN (BUN) 18 mg/dL (9-23)
[2017-08-09 06:25] LABS: ALKALINE PHOSPHATASE 111 IU/L (3-129); GLUCOSE 99 mg/dL (70-99)
[2017-08-09 07:34] VITALS: BP 100/54
[2017-08-09 15:59] VITALS: BP 110/60
[2017-08-10 07:05] VITALS: BP 119/65
[2017-08-10 15:20] VITALS: BP 92/59
[2017-08-11 00:46] VITALS: BP 110/72
[2017-08-11 06:45] VITALS: BP 110/69
[2017-08-11] MEDS ORDERED: COGENTIN0.5 MG PO ×2 (13:40→13:54)
[2017-08-11] MEDS ORDERED: RISPERIDONE1 MG PO ×2 (13:40→13:44)
[2017-08-11] MEDS ORDERED: RISPERDAL37.5 MG/2 IM (13:44)
[2017-08-11] MEDS ORDERED: RISPERDAL3 MG PO (13:48)
== END 2017-08-11 14:40 | DRG 637 ==
LOC: EME 17:54 → 4WEST 22:28 → 5EAST 22:28 → EDOF 22:28 → ENRESERV 22:30 → 5EAST 07-20 00:05 → EDOF 07-20 00:05 → 5EAST 07-21 07:24 → ENRESERV 07-28 20:38 → 4WEST 07-28 20:42 → ENRESERV 07-29 11:46 → CANRESERV 07-29 11:57 → ENRESERV 07-29 11:57 → 5EAST 07-29 17:32 → ENPENDDIS 08-11 → 5EAST 08-11 14:40
PROVIDERS: Emergency Medicine; Hospitalist; Internal Medicine; Internal Medicine Critical Care Medicine; Nurse Practitioner Adult Health; Pediatrics; Physician Assistant; Specialist
DX: E11.65 Type 2 diabetes mellitus with hyperglycemia (principal); I48.92 Unspecified atrial flutter; N39.0 Urinary tract infection, site not specified; I48.2 Chronic atrial fibrillation; N17.9 Acute kidney failure, unspecified; F03.91 Unspecified dementia, unspecified severity, with behavioral disturbance; E03.9 Hypothyroidism, unspecified; E86.1 Hypovolemia; J44.9 Chronic obstructive pulmonary disease, unspecified; E78.00 Pure hypercholesterolemia, unspecified; I10 Essential (primary) hypertension; F31.9 Bipolar disorder, unspecified; E87.2 Acidosis; E87.5 Hyperkalemia; R41.0 Disorientation, unspecified; F20.9 Schizophrenia, unspecified; E87.1 Hypo-osmolality and hyponatremia; I11.0 Hypertensive heart disease with heart failure; G93.40 Encephalopathy, unspecified; Z53.20 Procedure and treatment not carried out because of patient's decision for unspecified reasons; E78.5 Hyperlipidemia, unspecified; E11.51 Type 2 diabetes mellitus with diabetic peripheral angiopathy without gangrene; I50.9 Heart failure, unspecified; F05 Delirium due to known physiological condition; E87.6 Hypokalemia; I25.10 Atherosclerotic heart disease of native coronary artery without angina pectoris; Z23 Encounter for immunization; Z86.73 Personal history of transient ischemic attack (TIA), and cerebral infarction without residual deficits; I25.2 Old myocardial infarction; Z87.891 Personal history of nicotine dependence; Z95.2 Presence of prosthetic heart valve; Z79.4 Long term (current) use of insulin; Z79.899 Other long term (current) drug therapy; Z75.1 Person awaiting admission to adequate facility elsewhere
CPT/HCPCS: 36600; 70450; 71010; 71020; 76705; 80048; 80048 91; 80053; 80069; 80074; 81003; 82010; 82140; 82550; 82607; 82746; 82803; 82948; 83605; 83735; 84100; 84132 91; 84439; 84443; 84484; 84999; 85025; 85027; 86780; 87040; 87077; 87086; 87186; 87493; 87641; 92526 GN; 93005; 94799; 97530 GP; 99202; 99281; 99285; C1753; J0610; J1630; J1815; J2060; J2794; J3486; J7030; J7050; S0028